=== PATIENT | male | born 1965 | race Caucasian/White ===

== ENCOUNTER → 2019-10-20 | Outpatient (CLI) | payer BC ==
[~2019-10-20] MED LIST: SIMV40TA20 PO
--- NOTE | 2019-12-08 11:59 | REP ---
CT CHEST WITHOUT CONTRAST: LOW-DOSE SCREENING EXAM HISTORY: 30-pack year smoking history. Polycythemia vera. COMPARISON: None available. Report was delayed due to a malware attack on this facility. CT FINDINGS: Digital preliminary oil scout radiograph demonstrates a marked dextroconvex thoracolumbar scoliotic curve. There are innumerable cutaneous nodular excrescences throughout the scan field, question history of neurofibromatosis. No bony destructive lesion is seen. Calcified gallstones are visible at the bottom of the scan field in the region of the carlo hepatis probable cholelithiasis. There are emphysematous bullous changes bilaterally most pronounced in the upper lobes. There is a spiculated nodular opacity in the left upper lobe without visible calcification 6 mm in diameter. This is displayed on page 37 and 116 in series 201 of today's study. No other significant pulmonary nodule is appreciated. No mass lesion seen. IMPRESSION: Lung-RADS category 3 findings. A 6-mm spiculated nodule left upper lobe. Emphysematous changes, cholelithiasis, and innumerable cutaneous nodules are incidental findings. Repeat chest CT study recommended in four to six months. MTDD
== END ==
LOC: M RAD 11:00
PROVIDERS: ATTEND Internal Medicine Hematology & Oncology
DX: D45 Polycythemia vera (principal); F17.210 Nicotine dependence, cigarettes, uncomplicated

== ENCOUNTER → 2020-03-02 | Outpatient (CLI) | payer BC ==
--- NOTE | 2020-03-02 15:05 | REP ---
INDICATION: SOLITARY PULMONARY NODULE. COMPARISON: Low-dose lung screening chest CT dated 10/20/2019. TECHNIQUE: The study is performed without IV contrast. FINDINGS: The comparison study there was a nodule with irregular spiculated margins in the upper lobe of the left lung on image 37. This nodule is no longer identified today. The spiculations are no longer present. This may have represented transient atelectasis. There are are interstitial markings in this area demonstrating a normal arborization pattern, surrounded by numerous small bulla. No definite lung nodule is identified on the study today. There are no other lung masses or nodules. Numerous bulla replace lung parenchyma bilaterally as previously, predominantly in the upper lobes. There are no infiltrates or pleural effusions. Numerous skin nodules are again identified as previously. There is no mediastinal or axillary lymph node enlargement. The study is insensitive for hilar lymph node enlargement in the absence of IV contrast. The thoracic aorta is unremarkable. Cardiac size is normal. There is no pericardial effusion. There is a 2.5 cm left adrenal nodule with a median CT density of 30.6 Hounsfield units. This is considered suspicious. I would recommend follow-up dedicated adrenal MRI or adrenal CT for further evaluation. There is marked thoracolumbar scoliosis convex right, as previously. IMPRESSION: The previous right upper lobe lung nodule is no longer identified. The spiculations identified previously are no longer present. This may have been transient atelectasis. The nodule like density now has the appearance of normal arborize interstitium surrounded by numerous bulla. Extensive bolus replacement of the lung parenchyma is again identified. Numerous cutaneous nodules are again identified. There is a 2.5 cm left adrenal nodule as discussed above. This is not visible on the comparison study that was present at lung windowing only. The CT density of this nodule is suspicious and follow-up dedicated adrenal MRI or dedicated adrenal CT is recommended for further evaluation. Needle biopsy may ultimately be required. <Electronically signed by Dakota Vega > 03/02/20 [id number]
== END ==
LOC: M RAD 10:38
PROVIDERS: ATTEND Internal Medicine Pulmonary Disease
DX: R91.1 Solitary pulmonary nodule (principal)

== ENCOUNTER → 2020-06-08 | Outpatient (CLI) | payer BC ==
[~2020-06-08] MED LIST changes: +PROHANCE 279.3MG/ML 15ML VIAL As Ordered ONE
--- NOTE | 2020-06-09 09:37 | REP ---
INDICATION: LESION; LT ADRENAL NODULE. History of neural fibromatosis. COMPARISON: Comparison CT studies are from March 02, 2020 and October 20, 2019.. TECHNIQUE: Pre and post gadolinium enhanced axial and coronal T1 and T2 weighted scans are acquired including spin echo, fast spin echo, in and out of phase, diffusion weighted, and postcontrast images. Gadolinium enhancement dose is 11 mL of intravenous ProHance. FINDINGS: There is a moderate to marked dextroconvex rotoscoliosis in the thoraco-lumbar spine. There are multiple subcutaneous paravertebral and skeletal muscle chest wall nodular lesions. Multiple cutaneous lesions are seen associated with the patient's neural fibromatosis. The left adrenal nodule is observed. This measures 2.3 x 1.9 by 2.2 cm in diameter. It has atypical signal intensity with a 5 mm thick peripheral zone of intermediate T1 and low T2 signal intensity. This surrounds a slightly heterogeneous, septated appearing, high T2 very low T1 signal intensity interior. In and out of phase images show no evidence to suggest intralesional fat. There is similar signal intensity characteristics in some of the patient's intramuscular and subcutaneous nodules. There is a dumbbell-shaped neurofibroma in the left side of the lumbar canal at what appears to be L2-3 in the neural foramen which is enlarged. These lesions demonstrate restricted diffusion. Postcontrast images show contrast enhancement in the periphery of the left adrenal lesion as well as in the patient's cutaneous and intramuscular lesions. There does not appear to be much enhancement in the dumbbell lesion in the lumbar spine. No significant a [place] or splenic lesion is seen. No pancreatic mass or gastrointestinal mass is apparent. The kidneys enhance symmetrically and are morphologically intact. IMPRESSION: 1. There is a 2.3 cm left adrenal lesion whose signal intensity and contrast enhancement characteristics are felt to be most compatible with benign neurofibroma. The screening low-dose CT study from October 20, 2019 is not designed to show soft tissue windows but I believe I can see the lesion in retrospect in the left adrenal and it does not appear to have changed in the 7-8 month interval. I believe this lesion can be followed. It does not have signal intensity characteristics suggestive of pheochromocytoma or adrenal cortical carcinoma. 2. 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 3. Innumerable cutaneous and subcutaneous and skeletal muscle neural fibromatous lesions are noted. <Electronically signed by Alonso Grijalva > 06/09/20 [id number]
== END ==
LOC: M RAD 17:06
PROVIDERS: ATTEND Internal Medicine Hematology & Oncology
DX: D44.12 Neoplasm of uncertain behavior of left adrenal gland (principal); D45 Polycythemia vera
CPT/HCPCS: 74183; A9576

== ENCOUNTER → 2020-09-24 | Outpatient (CLI) | payer BC ==
[~2020-09-24] MED LIST changes: +ANOR1AER PO; -PROHANCE 279.3MG/ML 15ML VIAL As Ordered ONE
--- NOTE | 2020-09-25 00:03 | REP ---
INDICATION: EMPHYSMA COMPARISON: 10/20/2019 TECHNIQUE: Axial noncontrast images from the thoracic inlet to the upper abdomen with coronal and sagittal reformations. This CT examination was performed using the following dose reduction techniques: Automated exposure control, adjustment of mA and/or kv according to the patient's size, and use of iterative reconstruction technique. FINDINGS: Advanced COPD/emphysematous changes again noted. The spiculated scarring in the left upper lobe no longer contains nodular/solid component and likely represents small scarring. No acute consolidation, suspicious nodule or mass lesion. No pleural effusion. No pneumothorax. IMPRESSION: Lung-RADS category 2-S Advanced chronic COPD/emphysematous changes which somewhat limit evaluation. No suspicious nodule or mass lesion identified. Management recommendations include annual low-dose CT surveillance. <Electronically signed by Chris Keen > 09/24/20 [id number]
== END ==
LOC: M RAD 10:56
PROVIDERS: ATTEND Internal Medicine Pulmonary Disease
DX: J43.9 Emphysema, unspecified (principal)

== ENCOUNTER → 2021-11-06 | Outpatient (CLI) | payer BC | LOC: M RAD 08:23 | PROVIDERS: ATTEND Internal Medicine Pulmonary Disease | DX: F17.218 Nicotine dependence, cigarettes, with other nicotine-induced disorders (principal); R91.8 Other nonspecific abnormal finding of lung field ==

== ENCOUNTER → 2022-12-03 | Outpatient (CLI) | payer BC | LOC: M RAD 08:26 | PROVIDERS: ATTEND Internal Medicine Pulmonary Disease | DX: Z12.2 Encounter for screening for malignant neoplasm of respiratory organs (principal); F17.218 Nicotine dependence, cigarettes, with other nicotine-induced disorders ==

== ENCOUNTER → 2023-04-29 | Outpatient (CLI) | payer BC | LOC: M PLAIMG 13:01 | PROVIDERS: ATTEND Internal Medicine Pulmonary Disease | DX: R91.1 Solitary pulmonary nodule (principal); J43.9 Emphysema, unspecified; J98.11 Atelectasis; K80.20 Calculus of gallbladder without cholecystitis without obstruction ==

== ENCOUNTER 2023-12-24 10:15 | Day surgery (SDC) | payer BC ==
[~2023-12-24] VITALS: Ht 177.8 cm; Wt 51.3 kg
[~2023-12-24 10:15] MED LIST changes: +DULO1CAP5 PO; +LOSA25TA13 PO; +MIDAZOLAM INJ 2MG/2ML VIAL As Ordered ONE; +PHENYLEPHRINE 10% OPHTH SOL 5ML OD PRN; +fentaNYL 100 MCG/2 ML INJECTION As Ordered ONE
[2023-12-24] MEDS: OFLOXACIN 0.3 % (OCUFLOX) OPTH SOL 5ML OD ONE (10:55)
[2023-12-24] MEDS: LIDOCAINE 3.5 % 1ML OPHTH TOPICAL GEL OU ONE (10:55)
[2023-12-24] MEDS: TROPICAMIDE 1% OPHTH SOLN 15ML OD SCH (10:56)
[2023-12-24] MEDS: PHENYLEPHRINE 2.5% OPHTH SOL 2ML OD SCH (10:56)
[2023-12-24] MEDS: ATROPINE SULFATE 1% OPHTH SOLN 2ML BTL OD SCH (10:56)
[2023-12-24] MEDS: LIDOCAINE 1% SDV 5ML VIAL As Ordered ONE (11:35)
[2023-12-24] MEDS: BSS IRRIG/VANCO(10MG)/TOBRA(5MG)/EPINEPH(1:1000-0.5CC)500ML BAG-ORONLY As Ordered ONE (11:35)
[2023-12-24] MEDS: MOXIFLOXACIN 0.6MG/0.4ML INTRAOCULAR SYRINGE As Ordered ONE (11:43)
[2023-12-24 11:50] VITALS: BP 126/74; TEMP 98.1; O2SAT 92
== END 2023-12-24 12:05 | disposition home or self-care (01) ==
LOC: M SDC 10:15
PROVIDERS: ATTEND Ophthalmology
DX: H25.11 Age-related nuclear cataract, right eye (principal); I10 Essential (primary) hypertension; Z79.899 Other long term (current) drug therapy
CPT/HCPCS: 66984; J2250; J3010; V2632

== ENCOUNTER 2024-01-07 10:18 | Day surgery (SDC) | payer BC ==
[~2024-01-07] VITALS: Ht 177.8 cm; Wt 51.3 kg
[~2024-01-07 10:18] MED LIST changes: -MIDAZOLAM INJ 2MG/2ML VIAL As Ordered ONE; -PHENYLEPHRINE 10% OPHTH SOL 5ML OD PRN; +PHENYLEPHRINE 10% OPHTH SOL 5ML OS PRN; -fentaNYL 100 MCG/2 ML INJECTION As Ordered ONE
[2024-01-07] MEDS ORDERED: MIDAZOLAM INJ 2MG/2ML VIAL As Ordered ONE (11:45)
[2024-01-07] MEDS: OFLOXACIN 0.3 % (OCUFLOX) OPTH SOL 5ML OS ONE (12:07)
[2024-01-07] MEDS: LIDOCAINE 3.5 % 1ML OPHTH TOPICAL GEL OU ONE (12:07)
[2024-01-07] MEDS: TROPICAMIDE 1% OPHTH SOLN 15ML OS SCH (12:08)
[2024-01-07] MEDS: PHENYLEPHRINE 2.5% OPHTH SOL 2ML OS SCH (12:08)
[2024-01-07] MEDS: ATROPINE SULFATE 1% OPHTH SOLN 2ML BTL OS SCH (12:08)
[2024-01-07] MEDS: BSS IRRIG/VANCO(10MG)/TOBRA(5MG)/EPINEPH(1:1000-0.5CC)500ML BAG-ORONLY As Ordered ONE (12:18)
[2024-01-07] MEDS: LIDOCAINE 1% SDV 5ML VIAL As Ordered ONE (12:18)
[2024-01-07] MEDS ORDERED: fentaNYL 100 MCG/2 ML INJECTION As Ordered ONE (12:20)
[2024-01-07] MEDS: CEFUROXIME 1MG/0.1ML INTRACAMERAL INJ As Ordered ONE (12:21)
[2024-01-07 12:36] VITALS: BP 138/84; TEMP 98.7; O2SAT 94
== END 2024-01-07 12:51 | disposition home or self-care (01) ==
LOC: M SDC 10:18
PROVIDERS: ATTEND Ophthalmology
DX: H25.12 Age-related nuclear cataract, left eye (principal); I10 Essential (primary) hypertension; E78.5 Hyperlipidemia, unspecified; J44.9 Chronic obstructive pulmonary disease, unspecified; Z79.899 Other long term (current) drug therapy; Z79.51 Long term (current) use of inhaled steroids; Z88.0 Allergy status to penicillin; F17.218 Nicotine dependence, cigarettes, with other nicotine-induced disorders
CPT/HCPCS: 66984; J0697; J2250; J3010; V2632

== ENCOUNTER 2024-01-15 19:58 | Emergency (ER) | payer OTHER, BC ==
[~2024-01-15] VITALS: Ht 177.8 cm; Wt 52.3 kg
[~2024-01-15 19:58] MED LIST changes: -PHENYLEPHRINE 10% OPHTH SOL 5ML OS PRN
[2024-01-15 20:23] VITALS: TEMP 97.5
[2024-01-15 21:11] LABS: BASO # 0.1 10^3/uL (0.0-0.2); BASO % 0.5 % (0.0-1.0); EOS # 0.1 10^3/uL (0.0-0.5); EOS % 0.9 % (0.0-3.0); HEMATOCRIT 52.7 % (42.0-52.0); HEMOGLOBIN 17.5 g/dl (13.5-17.5); LYMPH # 1.6 10^3/uL (1.5-5.0); LYMPH % 14.7 % (24.0-44.0); MEAN CORPUSCULAR HEMOGLOBIN 28.5 pg (27.0-33.0); MEAN CORPUSCULAR HGB CONC 33.2 g/dl (32.0-36.5); MEAN CORPUSCULAR VOLUME 85.7 fl (80.0-96.0); MONO # 1.1 10^3/uL (0.0-0.8); NEUTROPHILS % 73.4 % (36.0-66.0); PLATELET COUNT, AUTOMATED 185 10^3/uL (150-450); RED BLOOD COUNT 6.15 10^6/uL (4.30-6.10); WHITE BLOOD COUNT 10.9 10^3/uL (4.0-10.0)
[2024-01-15 21:26] LABS: ALBUMIN 3.8 G/DL (3.2-5.2); ALKALINE PHOSPHATASE 91 U/L (40-129); ALT/SGPT < 9 U/L (7.0-40); AST/SGOT < 8 U/L (<34); BILIRUBIN,DIRECT 0.2 MG/DL (<0.4); BILIRUBIN,TOTAL 0.5 MG/DL (0.3-1.2); BLOOD UREA NITROGEN 19 MG/DL (9-23); CALCIUM LEVEL 9.9 MG/DL (8.3-10.6); CARBON DIOXIDE LEVEL 27 MMOL/L (20-31); CHLORIDE LEVEL 108 MMOL/L (98-107); GLOMERULAR FILTRATION RATE > 60.0 (>49); GLUCOSE, FASTING 93 MG/DL (74-106); SODIUM LEVEL 142 MMOL/L (136-145)
[2024-01-15 22:15] VITALS: BP 164/88; O2SAT 92
== END 2024-01-16 00:01 | disposition short-term general hospital (02) ==
LOC: M ED 19:58 → EDBD 19:58 → M ED 01-16 00:01
DX: S12.301A Unspecified nondisplaced fracture of fourth cervical vertebra, initial encounter for closed fracture (principal); V47.0XXA Car driver injured in collision with fixed or stationary object in nontraffic accident, initial encounter; Y92.9 Unspecified place or not applicable; Y93.9 Activity, unspecified; Y99.9 Unspecified external cause status; Q85.00 Neurofibromatosis, unspecified; J44.9 Chronic obstructive pulmonary disease, unspecified; K80.20 Calculus of gallbladder without cholecystitis without obstruction; M41.9 Scoliosis, unspecified; Z79.899 Other long term (current) drug therapy; Z88.0 Allergy status to penicillin